=== PATIENT | female | born 2000 | race Hispanic/Latino ===

== ENCOUNTER 2021-10-09 12:39 | Emergency (ER) | payer OTHER ==
[~2021-10-09] VITALS: Ht 162.6 cm; Wt 83.9 kg
[2021-10-09] MEDS ORDERED: CLEOCIN HCL150 MG PO (13:16)
[2021-10-11] MEDS ORDERED: OFLOXACIN5 ML OP (08:20)
== END 2021-10-09 14:07 | disposition home or self-care (01) ==
LOC: ER 12:46
DX: J02.8 Acute pharyngitis due to other specified organisms (principal); B96.89 Other specified bacterial agents as the cause of diseases classified elsewhere; Z88.0 Allergy status to penicillin; Z88.8 Allergy status to other drugs, medicaments and biological substances; Z87.891 Personal history of nicotine dependence
CPT/HCPCS: 99283